=== PATIENT | male | born 1970 | race Asian ===

== ENCOUNTER 2022-07-28 21:11 | Emergency (ER) | payer BC, MEDICAID ==
[~2022-07-28] VITALS: Ht 175.3 cm; Wt 65.9 kg
[2022-07-29 00:21] VITALS: BP 121/74
[2022-07-29 00:31] LABS: COVID AG,FIA SOURCE NASAL SWAB
== END 2022-07-29 02:29 | disposition home or self-care (01) ==
LOC: EMS 21:13
DX: Z01.84 Encounter for antibody response examination (principal); E11.9 Type 2 diabetes mellitus without complications; Z20.822 Contact with and (suspected) exposure to COVID-19
CPT/HCPCS: 82962; 99282; 99283

== ENCOUNTER 2024-07-31 11:57 | Inpatient (IN) | payer MEDICAID ==
[~2024-07-31] VITALS: Ht 180.3 cm; Wt 60.4 kg
[~2024-07-31 11:57] MED LIST: AMLO-258 PO; INSLAN SQ; PHOSLOC PO; SYRI-590 SQ
[2024-07-31 13:09] LABS: BASOPHILS % (AUTO) 0.4 % (0.0-2.0); EOSINOPHILS % (AUTO) 1.8 % (1.0-6.0); HEMATOCRIT 38.9 % (41-53); HEMOGLOBIN 12.8 g/dL (13.5-17.5); LYMPHOCYTES # (AUTO) 1.4 K/uL (1.0-4.8); MEAN CORPUSCULAR HEMOGLOBIN 31.9 pg (26.0-34.0); MEAN CORPUSCULAR VOLUME 97 fL (80-100); MONOCYTES # (AUTO) 0.5 K/uL (0.1-1.0); MONOCYTES % (AUTO) 5.1 % (2.0-9.0); NEUTROPHILS # (AUTO) 7.6 K/uL (1.8-7.7); NEUTROPHILS % (AUTO) 78.7 % (40.0-70.0); PLATELET COUNT (AUTO) 259 K/uL (150-450); RED BLOOD CELL COUNT(AUTO) 4.02 MIL/uL (4.50-5.90); RED CELL DISTRIBUTION WIDTH 12.6 % (11.5-14.5); WHITE BLOOD COUNT (AUTO) 9.7 K/uL (4.5-11.0)
[2024-07-31] MEDS: BACITRACIN 0.9 GM PACKET OINTMENT TP ONE (13:10)
[2024-07-31] MEDS: SODIUM CHLORIDE 0.9% 1,000 ML IV ONE (13:10)
[2024-07-31 13:34] LABS: ANION GAP 9 mmol/L (8-16); CALCIUM, TOTAL 8.9 mg/dL (8.8-10.5); CARBON DIOXIDE 27 mmol/L (22-29); CHLORIDE 102 mmol/L (98-107); CREATININE 1.08 mg/dL (0.60-1.30); GLOMERULAR FILTR. RATE CALC > 60 mL/min (>60); POTASSIUM 4.1 mmol/L (3.5-5.1); SODIUM SERUM 138 mmol/L (136-145); UREA NITROGEN, BLOOD 27 mg/dL (7-18)
[2024-07-31 13:37] LABS: GLUCOSE,RANDOM 47 mg/dL (70-110)
[2024-07-31 13:39] LABS: TROPONIN I-HIGH SENSITIVITY 4 ng/L (<76)
[2024-07-31] MEDS: DEXTROSE 50%-WATER 25 GM/50 ML SYRINGE IVP ONE (13:46)
[2024-07-31 14:46] LABS: GLUCOMETER DEV NAME(LOC) ER.7; GLUCOSE,POINT OF CARE 134 MG/DL (70-110)
[2024-07-31 18:56] LABS: GLUCOMETER DEV NAME(LOC) ER.7; GLUCOSE,POINT OF CARE 126 MG/DL (70-110)
[2024-07-31] MEDS ORDERED: METF-446 PO (18:59)
[2024-07-31] MEDS ORDERED: LISI20TA24 PO (18:59)
[2024-07-31] MEDS ORDERED: CHOL100062 PO (18:59)
[2024-07-31] MEDS ORDERED: INSU100I56 SQ (18:59)
[2024-07-31] MEDS ORDERED: DAPA10TA PO (18:59)
[2024-07-31] MEDS ORDERED: ASPI-1522 PO (18:59)
[2024-07-31] MEDS ORDERED: SEMA0.258 SQ (18:59)
[2024-07-31] MEDS ORDERED: ONDANSETRON HCL 4 MG/2 ML VIAL IVP PRN (19:00)
[2024-07-31] MEDS ORDERED: ALBUTEROL SULFATE 2.5 MG/0.5 ML NEB SOLUTION NEB PRN (19:00)
[2024-07-31] MEDS ORDERED: ACETAMINOPHEN 325 MG TABLET PO PRN (19:00)
[2024-07-31] MEDS ORDERED: MAGNESIUM HYDROXIDE SUSPENSION 30 ML UDCUP PO PRN (19:00)
[2024-07-31] MEDS ORDERED: BISACODYL 10 MG RECTAL RECTAL SUPPOSITORY PR PRN (19:00)
[2024-07-31] MEDS ORDERED: HYDROCODONE/ACETAMINOPHEN 5-325 MG TABLET PO PRN (19:00)
[2024-07-31] MEDS ORDERED: ZOLPIDEM TARTRATE 5 MG TABLET PO PRN (19:00)
[2024-07-31] MEDS ORDERED: MORPHINE SULFATE 2 MG/ML SYRINGE IVP PRN (19:00)
[2024-07-31] MEDS ORDERED: IPRATROPIUM BROMIDE 0.5 MG/2.5 ML NEB SOLUTION NEB PRN (19:00)
[2024-07-31] MEDS: DOCUSATE SODIUM 100 MG CAPSULE PO SCH (20:54)
[2024-07-31 21:07] VITALS: BP 111/77; PULSE 85; RESP 19; TEMP 97.3; O2SAT 100
[2024-07-31] MEDS: HEPARIN SODIUM,PORCINE 5,000 UNITS/ML VIAL SQ SCH (23:58)
[2024-08-01 00:34] VITALS: BP 120/81; PULSE 86; RESP 16; TEMP 97.9; O2SAT 97
[2024-08-01 05:32] VITALS: BP 135/83; PULSE 81; RESP 19; TEMP 98.6; O2SAT 97
[2024-08-01 08:37] LABS: CHOL/HDL RATIO 3.3 (4.2-7.3)
[2024-08-01 08:59] VITALS: BP 152/89; PULSE 84; RESP 18; TEMP 98.2; O2SAT 99
[2024-08-01] MEDS: PANTOPRAZOLE SODIUM 40 MG/VIAL IVP SCH (09:00)
[2024-08-01] MEDS: ASPIRIN 81 MG DR TABLET PO SCH (09:02)
[2024-08-01] MEDS ORDERED: INSU3INS3 SQ (11:54)
[2024-08-01] MEDS ORDERED: NEED-463 SQ (11:54)
[2024-08-01 12:45] VITALS: BP 137/81; PULSE 82; RESP 18; TEMP 97.9; O2SAT 100
[2024-08-01 18:12] LABS: GLUCOMETER DEV NAME(LOC) 5N.1D; GLUCOSE,POINT OF CARE 167 MG/DL (70-110)
[2024-08-01 18:13] LABS: GLUCOMETER DEV NAME(LOC) 5N.1D; GLUCOSE,POINT OF CARE 162 MG/DL (70-110)
[2024-08-03 20:08] LABS: GLUCOMETER DEV NAME(LOC) 5S.2D; GLUCOSE,POINT OF CARE 232 MG/DL (70-110)
== END 2024-08-01 16:00 | disposition home or self-care (01) | DRG 48 ==
LOC: EMS 12:07 → EDH 14:49 → 5S 20:42
PROVIDERS: ADMIT Hospitalist; ATTEND Hospitalist
DX: G90.89 Other disorders of autonomic nervous system (principal); E11.649 Type 2 diabetes mellitus with hypoglycemia without coma; I10 Essential (primary) hypertension; S00.83XA Contusion of other part of head, initial encounter; R62.50 Unspecified lack of expected normal physiological development in childhood; W18.39XA Other fall on same level, initial encounter; Y93.89 Activity, other specified; Y92.89 Other specified places as the place of occurrence of the external cause; Y99.8 Other external cause status; Z79.4 Long term (current) use of insulin; Z79.899 Other long term (current) drug therapy; R55 Syncope and collapse
CPT/HCPCS: 71045; 80048; 80061; 82962; 84484; 85025; 93005; 93306; 93880; 96360; 99285; J1644; 36415-L1; 36415-TC